=== PATIENT | female | born 1965 | race Caucasian/White ===

== ENCOUNTER 2020-10-23 06:14 | Outpatient (REF) | payer BC, SELFPAY | END 2020-10-23 06:15 | disposition home or self-care (01) | LOC: HO.LAB 06:14 | PROVIDERS: PCP Internal Medicine; Visit Provider Internal Medicine | DX: Z20.822 Contact with and (suspected) exposure to COVID-19 (principal) | CPT/HCPCS: 36415; C9803; U0003 ==

== ENCOUNTER 2024-03-05 07:20 | Outpatient (REF) | payer BC, SELFPAY ==
--- NOTE | ~2024-03-05 | MR_ITS ---
EXAMINATION: MR LUMBAR SPINE WITHOUT CONTRAST CLINICAL INFORMATION: 59-year-old female. Chronic low back pain. No injury. Left hip steroid injection helped back pain 2 weeks prior. 2009 disc surgery, level not specified. COMPARISON: No prior. TECHNIQUE: Multiplanar multisequence MR imaging of the lumbar spine was done without IV contrast. Standard sequences utilized. Coronal T2 was also added. FINDINGS: Coronal Alignment: There is a moderate levoconvex scoliosis, apex at L3, with a mild rotatory component. Sagittal Alignment: There is mild straightening of the normal lordosis. There is a 3 mm retrolisthesis of L3 on L4, L4-L5, and a more significant 6 mm retrolisthesis of L5 on S1. Lumbosacral Junction: Normal. No transitional levels. Vertebral Bodies/Bone Marrow: No compression deformities. There are are mixed fatty and edematous type endplate changes present at L3-L4 oriented to the right. Lesser degree of fatty and edematous type endplate changes are present at L5-S1. No additional regions of bone marrow edema. No abnormal infiltrating bone marrow signal. Disc Spaces and Endplates: Severe loss of disc height and signal is present L3-L4 and L5-S1. Moderate loss at L4-L5. Schmorl's node in the inferior endplate of L4. Mild loss of disc signal without loss of disc height present at L2-L3, and the levels above. Spinal Canal: No abnormal developmental findings. Conus Medullaris: Terminates at superior endplate of L2.. Morphology and signal is normal. Intradural Nerve Roots: Normal in appearance. No masses or abnormal clumping. Axial Disc Space Images: T12-L1: There is no focal disc pathology. Mild degenerative arthritis of the facet joints bilaterally. Ligamentum flavum otherwise normal. No central canal or neural foraminal narrowing. L1-L2: There is a left paracentral and lateral protrusion of disc material, with annular fissure present in the foraminal zone. This indents upon the ventral thecal sac, and minimally narrows the left lateral recess without contacting the traversing nerve roots. There is mild central stenosis, and mild left neural foraminal stenosis. No definite nerve root impingement. Right neural foramen is patent. L2-L3: There is a lateral to foramen right-sided disco osteophytic bulge, with no mass effect. Otherwise, there is no central canal, lateral recess, or neural foraminal narrowing. Mild to moderate degenerative facet changes are present with mild posterior ligamentous thickening/infolding. L3-L4: Subtle retrolisthesis with a right far lateral and foraminal disc osteophytic protrusion, extending into the lateral to foramen region. Coupled with moderate hypertrophic degenerative facet changes bilaterally, and mild posterior ligamentous thickening/evolving, findings are resulting in mild central canal narrowing, mild to moderate right subarticular recess narrowing with contact but no definite deviation of the traversing right L4 nerve roots. The left lateral recess is patent. There is mild right neural foraminal narrowing. The left neural foramen is patent. No nerve root impingement. L4-L5: Minimal retrolisthesis, with a minimal diffuse bulging disc which extends into both foraminal zones left greater than right. Moderate hypertrophic degenerative facet changes left greater than right, with moderate posterior ligamentous thickening/evolving. There is mild central canal narrowing, mild to moderate left and mild right subarticular recess narrowing, with contact of the traversing left L5 roots but no deviation or impingement. There is mild bilateral neural foraminal narrowing without nerve root impingement. L5-S1: 6 mm retrolisthesis at this level. Probable partial right facetectomy. Probable right foraminotomy. There is a shallow diffuse bulging disc, with a superimposed extruded osteophytic ridge component in the left lateral foramen and extending lateral to foramen, with contact and minimal deviation of the exited L5 nerve root in the lateral to foramen region (series 6, image 28). There are moderate left greater than right hypertrophic degenerative facet changes, moderate posterior ligamentous thickening/evolving, with the combination of findings resulting in mild central canal stenosis, mild to moderate left subarticular recess stenosis with contact but no impingement or deviation of the traversing left S1 roots. There is moderate to severe left neural foraminal narrowing with contact but no deformation of the exiting left L5 root. There is mild right neural foraminal narrowing. There is susceptibility artifact posterior to the right lamina from surgical clips, with a right subtle hemilaminotomy. Imaged SI Joints: Mild degenerative arthritis. Paravertebral and Included Extraspinal Soft Tissues: Mild atrophy of the inferior erector spinae muscles. Paraspinal simple cysts in the lower pole left kidney. Aorta is normal in caliber. No definite gallstones. Common duct is normal in caliber. No adenopathy. MR/MR lumbar spine wo con IMPRESSION: 1. Moderate spondylosis of the lumbar spine most significant at L3-L4, L4-L5, and L5-S1. See above for details of individual levels. There is no high-grade central canal or lateral recess stenosis. 2. Prior surgery at L5-S1 which appears to represent a subtle right hemilaminotomy and possible right foraminotomy and partial facetectomy. There is moderate to severe left neural foraminal stenosis L5-S1, contact of the exited left lateral to foraminal nerve root with mild deviation, and mild to moderate left subarticular recess narrowing with contact but no deviation or impingement of the traversing left S1 roots. 3. There is a mild to moderate levoconvex scoliosis with a mild rotatory component, apex at L3. 4. Edematous type endplate changes are present L3-L4 oriented to the right, and to a lesser degree L5-S1. 5. Subtle retrolistheses L3-L4, L4-L5, with a 6 mm retrolisthesis of L5-S1, based upon degenerative disc and facet changes. 6. See the body of the report for additional ancillary findings.
== END 2024-03-05 07:21 | disposition home or self-care (01) ==
LOC: HO.MRI 07:20
PROVIDERS: PCP Internal Medicine; Visit Provider Physician Assistant
DX: M54.59 Other low back pain (principal)
CPT/HCPCS: 72148

== ENCOUNTER → 2024-03-05 07:20 | Outpatient (BNV) | payer BC, SELFPAY | PROVIDERS: PCP Internal Medicine; Visit Provider Radiology Diagnostic Radiology | DX: M47.896 Other spondylosis, lumbar region (principal) | CPT/HCPCS: 72148 ==